=== PATIENT | male | born 2000 | race Caucasian/White ===

== ENCOUNTER 2023-01-03 14:21 | Outpatient (AMB) | payer OTHER, SELFPAY ==
--- NOTE | 2023-01-03 14:27 | MHC.PC.OV ---
Vital Signs 01/03/23 14:30 Height 5 ft 7 in Weight 134 lb 4 oz BMI 21.0 BP 118/72 Blood Pressure Location Rt brachial Position Sitting Pulse 79 Pulse Source Pulse Oximeter Pulse Oximetry (%) 96 Oxygen Delivery Method Room Air Intake Visit Reasons: [employer]-ADHD Allergies No Known Allergies Allergy (Verified 01/03/23 15:09) Medication List - Last Reconciled 01/03/23 by RU Andre No Known Home Meds Tobacco use date assessed: 01/03/23 Dental Screening Dental Screen Date: 01/03/23 Did you have a dental visit in the last 12 months?: Yes Did you have a dental problem in the last 6 months where you did not have access to dental care?: No Was dental information given to patient?: Patient has dentist HPI [employer]-AD[employer] HPI Details New pt is here for a PE. Will order labs. Pt has a hx of ADHD and used to take medication for this. He would like to restart meds and needs a psychiatrist, will have team contact pt. Pt has a family hx of hemochromatosis, will check iron, ferritin, genetic testing. [facility] Medical History Smell disorder Social History Housing: House Patient Tobacco Use Status: Never used Tobacco e-Cigarette/Vaping Use: Never Used Second Hand Smoke Exposure: No service: No Current occupational status: employed Current occupation: [employer] Current occupational exposures/hazards: No Cognitive needs: No Hearing needs: No Vision needs: No Questionnaire PHQ-9 Over the last 2 weeks, how often have you been bothered by any of the following problems? 1. Little interest or pleasure in doing things: not at all 2. Feeling down, depressed, or hopeless: not at all 3. Trouble falling or staying asleep, or sleeping too much: not at all 4. Feeling tired or having little energy: not at all 5. Poor appetite or overeating: not at all 6. Feeling bad about yourself - or that you are a failure or have let yourself or your family down: not at all 7. Trouble concentrating on things, such as reading the newspaper or watching television: several days 8. Moving or speaking so slowly that other people could have noticed. Or the opposite - being so fidgety or restless that you have been moving around a lot more than usual: not at all 9. Thoughts that you would be better off or of hurting yourself in some way: not at all Total score: 1 Depression Screening Interpretation: Negative 69676 - PHQ-9 Billing: Yes Source: Developed by Drs. Raymundo Gao, Jaquelin Kolb, Sunny Lofton and colleagues, with an educational philip from [employer]. Thrive Questionnaire Date Thrive assessed: 01/03/23 I am a: Patient What is your living situation today?: I have a steady place to live Within the past 12 months, did the food you bought not last and you didn't have the money to get more?: Never true Within the past 12 months, did you worry whether your food would run out before you got money to buy more?: Never true Do you have trouble paying for medicines?: No Do you have trouble getting transportation to medical appointments?: No Do you have trouble paying your heating and electricity bill?: No Do you have trouble taking care of your child, family member or friend?: No Do you have trouble with day-to-day activities such as bathing, preparing meals, shopping, managing finances, etc.?: No Are you currently unemployed and looking for a job?: No Are you interested in more education?: No Currently or been in a relationship where the following occur: no concerns reported AUDIT C Alcohol Use Questionnaire (AUDIT-C) 1. How often do you have a drink containing alcohol?: 2-3 times a week 2. How many drinks containing alcohol do you have on a typical day when you are drinking?: 3 or 4 3. How often do you have six or more drinks on one occasion?: Less than monthly Total Score: 5 Score Reviewed/Action Taken: Yes JORJE-7 AMB Questionnaire JORJE-7 Date JORJE - 7 assessed: 01/03/23 Feeling nervous, anxious, or on edge: 0 = Not at all Not being able to stop or control worryin = Not at all Worrying too much about different things: 0 = Not at all Trouble relaxin = Not at all Being so restless that it is hard to sit still: 0 = Not at all Becoming easily annoyed or irritable: 0 = Not at all Feeling afraid as if something awful might happen: 0 = Not at all Total JORJE-7 score (0-4 normal; 5-9 mild; 10-14 moderate; 15-21 severe): 0 Source: Developed by Drs. Raymundo Gao, Jaquelin Kolb, Sunny Lofton and colleagues, with an educational philip from [employer]. JORJE-7 Assessment Billing JORJE-7 Assessment Tool: JORJE-7 Assessment 70602 Review of Systems Const Denies chills and Denies fever(s) Eyes Denies blurry vision ENT Denies vertigo, Denies dizziness and Denies sore throat Card Denies chest pain at rest, Denies chest pain with activity, Denies diaphoresis, Denies dyspnea and Denies dyspnea on exertion Resp Denies cough, Denies dyspnea, Denies dyspnea on exertion and Denies wheezing GI Denies abdominal pain, Denies melena, Denies hematochezia, Denies constipation, Denies diarrhea and Denies loose stools Denies hematuria Musc Denies numbness and Denies tingling Skin/Breast Denies lesions Neuro Denies vertigo, Denies dizziness, Denies numbness and Denies tingling Psych Denies anxiety, Denies depression, Denies homicidal ideation, Denies suicidal ideation and Denies other (substance abuse) Aller/Immun Denies wheezing Physical exam (Primary Care) Vital Signs: Last Vital Signs Pulse 79 01/03/23 14:30 BP 118/72 01/03/23 14:30 Pulse Ox 96 01/03/23 14:30 Oxygen Delivery Method Room Air 01/03/23 14:30 BMI result Body Mass Index 21.0 Tobacco/Smoking Status: Tobacco use Status Tobacco use date assessed 01/03/23 01/03/23 14:35 Patient Tobacco Use Status Never used Tobacco 01/03/23 14:35 e-Cigarette/Vaping Use Never Used 01/03/23 14:35 PHQ-9: PHQ-9 Score PHQ-9: Total score 1 01/03/23 15:29 Depression Screening Interpretation: Negative Thrive Assessment: Date of Thrive Assessment Date Thrive assessed 01/03/23 01/03/23 15:29 Currently or been in a relationship where the following occur: no concerns reported Const General: cooperative Nutritional Appearance: well nourished Orientation/consciousness: patient oriented x3 HENMT Head: Yes normal to inspection, Yes normocephalic and Yes atraumatic Ears: TM's normal bilaterally Eyes General: appearance normal, both eyes and all related structures Alignment and Position: alignment normal and position normal Neck Neck: Yes normal visual inspection and Yes no lymphadenopathy Thyroid: Thyroid normal Resp Effort & Inspection: normal respiratory effort Auscultation: clear to auscultation bilaterally Cardio Rate: regular rate Rhythm: regular rhythm Heart sounds: S1 normal heart sound present, S2 normal heart sound present and no murmurs GI Palpation (GI): Soft to palpation and nontender Auscultation: normal bowel sounds Male General Exam: Yes normal external exam Penis: normal penis Scrotum: scrotum normal, testes descended bilaterally and no inguinal hernias Testes: no testicular mass Skin Rashes: no rashes Neuro General: patient oriented x3, moves all extremities, no focal motor deficits and deep tendon reflexes 2+ bilaterally Romberg Test: Negative Psych Appearance: grossly normal Mental Status: mental status grossly normal Speech and movement: Normal speech and movement present Affect: normal affect Attitude: cooperative Thought process: Normal thought process present Thought content: Normal thought content present Insight: Good insight present (Psych) Judgement: Good judgement present (Psych) Assessment and Plan Assessment & Plan (1) Physical exam: Code(s): Z00.00 - Encounter for general adult medical examination without abnormal findings Plan: Labs ordered (2) Family history of hemochromatosis: Code(s): Z83.49 - Family history of other endocrine, nutritional and metabolic diseases Plan The patient agreed to the use of a bilingual medical assistant for this encounter. Scribed for RU Marquez by Wendy Littlejohn bilingual medical assistant, on 01/03/2023 at 15:05 EST. Orders: Orders Comprehensive [place]. Panel Fast Today Z00.00 - Encounter for general adult medical examination without abnormal findings Lipid Panel Today Z00.00 - Encounter for general adult medical examination without abnormal findings TSH reflex Free T4 Today Z00.00 - Encounter for general adult medical examination without abnormal findings Complete Blood Count Auto Diff Today Z00.00 - Encounter for general adult medical examination without abnormal findings UA CC w/rflx Micro + Cult Today Z00.00 - Encounter for general adult medical examination without abnormal findings Ferritin Today Z83.49 - Family history of other endocrine, nutritional and metabolic diseases IRON PROFILE Today Z83.49 - Family history of other endocrine, nutritional and metabolic diseases DNA Analysis Hemochromatosis Today Z83.49 - Family history of other endocrine, nutritional and metabolic diseases Coding Level of Care Code New Pt Prev Care 18-39yr(52919 Diagnoses Physical exam Z00.00 Family history of hemochromatosis Z83.49 Additional Codes JORJE-7 Assessment Billing - JORJE-7 Assessment Tool: JORJE-7 Assessment 58116 ([id number])
[2023-01-03 14:30] VITALS: BP 118/72; PULSE 79; O2SAT 96; BMI 21.0
== END 2023-01-03 16:54 | disposition home or self-care (01) ==
PROVIDERS: PCP Nurse Practitioner Family; Visit Provider Nurse Practitioner Family
DX: Z00.00 Encounter for general adult medical examination without abnormal findings (principal); Z83.49 Family history of other endocrine, nutritional and metabolic diseases
CPT/HCPCS: 99385

== ENCOUNTER 2024-01-09 15:51 | Outpatient (AMB) | payer OTHER, SELFPAY ==
--- NOTE | 2024-01-09 15:54 | A.OFFPC_ITS ---
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 Will order labs. [facility] Medical History Smell disorder Surgical History No pertinent past surgical history Social History Housing: House Patient Tobacco Use Status: Never used Tobacco e-Cigarette/Vaping Use: Never Used Second Hand Smoke Exposure: No service: No Current occupational status: employed Current occupation: [employer] Current occupational exposures/hazards: No Cognitive needs: No Hearing needs: No Vision needs: No Questionnaire PHQ-9 Over the last 2 weeks, how often have you been bothered by any of the following problems? 1. Little interest or pleasure in doing things: not at all 2. Feeling down, depressed, or hopeless: not at all 3. Trouble falling or staying asleep, or sleeping too much: not at all 4. Feeling tired or having little energy: not at all 5. Poor appetite or overeating: not at all 6. Feeling bad about yourself - or that you are a failure or have let yourself or your family down: not at all 7. Trouble concentrating on things, such as reading the newspaper or watching television: not at all 8. Moving or speaking so slowly that other people could have noticed. Or the opposite - being so fidgety or restless that you have been moving around a lot more than usual: not at all 9. Thoughts that you would be better off or of hurting yourself in some way: not at all Total score: 0 Depression Screening Interpretation: Negative Depression Screening Done: Yes 50344 - PHQ-9 Billing: Yes Source: Developed by Drs. Raymundo Gao, Jaquelin Kolb, Sunny Lofton and colleagues, with an educational philip from [employer]. Thrive Questionnaire Date Thrive assessed: 01/09/24 I am a: Patient What is your living situation today?: I have a steady place to live Within the past 12 months, did the food you bought not last and you didn't have the money to get more?: Never true Within the past 12 months, did you worry whether your food would run out before you got money to buy more?: Never true Do you have trouble paying for medicines?: No Do you have trouble getting transportation to medical appointments?: No Do you have trouble paying your heating and electricity bill?: No Do you have trouble taking care of your child, family member or friend?: No Do you have trouble with day-to-day activities such as bathing, preparing meals, shopping, managing finances, etc.?: No Are you currently unemployed and looking for a job?: No Are you interested in more education?: No Please select the resources that you would like help with: None Currently or been in a relationship where the following occur: No concerns reported THRIVE Score: 0 AUDIT C Alcohol Use Questionnaire (AUDIT-C) 1. How often do you have a drink containing alcohol?: 2-3 times a week 2. How many drinks containing alcohol do you have on a typical day when you are drinking?: 3 or 4 3. How often do you have six or more drinks on one occasion?: Never Total Score: 4 Score Reviewed/Action Taken: Yes JORJE-7 AMB Questionnaire JORJE-7 Date JORJE - 7 assessed: 01/09/24 Feeling nervous, anxious, or on edge: 0 = Not at all Not being able to stop or control worryin = Not at all Worrying too much about different things: 0 = Not at all Trouble relaxin = Not at all Being so restless that it is hard to sit still: 0 = Not at all Becoming easily annoyed or irritable: 0 = Not at all Feeling afraid as if something awful might happen: 0 = Not at all Total JORJE-7 score (0-4 normal; 5-9 mild; 10-14 moderate; 15-21 severe): 0 Source: Developed by Drs. Raymundo Gao, Jaquelin Kolb, Sunny Lofton and colleagues, with an educational philip from [employer]. JORJE-7 Assessment Billing JORJE-7 Assessment Tool: JORJE-7 Assessment 58468 Review of Systems Const Denies chills and Denies fever(s) Eyes Denies blurry vision ENT Denies vertigo, Denies dizziness and Denies sore throat Card Denies chest pain at rest, Denies chest pain with activity, Denies diaphoresis, Denies dyspnea and Denies dyspnea on exertion Resp Denies cough, Denies dyspnea, Denies dyspnea on exertion and Denies wheezing GI Denies abdominal pain, Denies melena, Denies hematochezia, Denies constipation, Denies diarrhea and Denies loose stools Denies hematuria Musc Denies numbness and Denies tingling Skin/Breast Denies lesions Neuro Denies vertigo, Denies dizziness, Denies numbness and Denies tingling Psych Denies anxiety, Denies depression, Denies homicidal ideation, Denies suicidal ideation and Denies other (substance abuse) Aller/Immun Denies wheezing Physical exam (Primary Care) Vital Signs: Last Vital Signs Pulse 76 01/09/24 15:55 BP 112/70 01/09/24 15:55 Pulse Ox 98 01/09/24 15:55 Oxygen Delivery Method Room Air 01/09/24 15:55 BMI result Body Mass Index 22.4 Tobacco/Smoking Status: Tobacco use Status Tobacco use date assessed 01/09/24 01/09/24 15:56 Patient Tobacco Use Status Never used Tobacco 01/09/24 15:56 e-Cigarette/Vaping Use Never Used 01/09/24 15:56 PHQ-9: PHQ-9 Score PHQ-9: Total score 0 01/09/24 16:14 Depression Screening Interpretation: Negative Thrive Assessment: Date of Thrive Assessment Date Thrive assessed 01/09/24 01/09/24 15:56 Currently or been in a relationship where the following occur: No concerns reported Const General: cooperative Nutritional Appearance: well nourished Orientation/consciousness: patient oriented x3 HENMT Head: Yes normal to inspection, Yes normocephalic and Yes atraumatic Ears: TM's normal bilaterally Eyes General: appearance normal, both eyes and all related structures Alignment and Position: alignment normal and position normal Neck Neck: Yes normal visual inspection and Yes no lymphadenopathy Thyroid: Thyroid normal Resp Effort & Inspection: normal respiratory effort Auscultation: clear to auscultation bilaterally Cardio Rate: regular rate Rhythm: regular rhythm Heart sounds: S1 normal heart sound present, S2 normal heart sound present and no murmurs GI Palpation (GI): Soft to palpation and nontender Auscultation: normal bowel sounds Male General Exam: Yes normal external exam Penis: normal penis Scrotum: scrotum normal, testes descended bilaterally and no inguinal hernias Testes: no testicular mass Skin Rashes: no rashes Neuro General: patient oriented x3, moves all extremities, no focal motor deficits and deep tendon reflexes 2+ bilaterally Romberg Test: Negative Psych Appearance: grossly normal Mental Status: mental status grossly normal Speech and movement: Normal speech and movement present Affect: normal affect Attitude: cooperative Thought process: Normal thought process present Thought content: Normal thought content present Insight: Good insight present (Psych) Judgement: Good judgement present (Psych) Assessment and Plan Assessment & Plan (1) Physical exam: Code(s): Z00.00 - Encounter for general adult medical examination without abnormal findings Orders: Orders Comprehensive [place]. Panel Fast Today Z00.00 - Encounter for general adult medical examination without abnormal findings Lipid Panel Today Z00.00 - Encounter for general adult medical examination without abnormal findings Complete Blood Count Auto Diff Today Z00.00 - Encounter for general adult medical examination without abnormal findings TSH reflex Free T4 Today Z00.00 - Encounter for general adult medical examination without abnormal findings UA CC w/rflx Micro + Cult Today Z00.00 - Encounter for general adult medical examination without abnormal findings Coding Level of Care Code Est Pt Prev Care 18-39y(13249) Diagnoses Physical exam Z00. Additional Codes JORJE-7 Assessment Billing - JORJE-7 Assessment Tool: JORJE-7 Assessment 11395 ([id number])
[2024-01-09 15:55] VITALS: BP 112/70; PULSE 76; O2SAT 98; BMI 22.4
== END 2024-01-09 16:24 | disposition home or self-care (01) ==
PROVIDERS: PCP Nurse Practitioner Family; Visit Provider Nurse Practitioner Family
DX: Z00.00 Encounter for general adult medical examination without abnormal findings (principal)
CPT/HCPCS: 99395

== ENCOUNTER 2025-01-12 16:03 | Outpatient (AMB) | payer OTHER, SELFPAY ==
--- NOTE | 2025-01-12 16:05 | A.OFFPC_ITS ---
Vital Signs 01/12/25 16:07 Height 5 ft 7 in Weight 134 lb BMI 21.0 BP 108/82 Blood Pressure Location Rt brachial Position Sitting Respiration 16 Pulse 80 Pulse Source Pulse Oximeter Temp 98.4 F Temp Source Oral Pulse Oximetry (%) 98 Oxygen Delivery Method Room Air Intake Visit Reasons: ANNUAL Wash And Greaser Required: No Accompanied by: Self / Same As Patient Allergies No Known Allergies Allergy (Verified 01/12/25 16:08) Tobacco use date assessed: 01/12/25 Dental Screening Dental Screen Date: 01/12/25 Did you have a dental visit in the last 12 months?: No Did you have a dental problem in the last 6 months where you did not have access to dental care?: No Was dental information given to patient?: Patient has dentist HPI ANNUAL HPI Details History of Present Illness The patient is a 25-year-old male presenting for a physical examination. He denies experiencing any chest pain, shortness of breath, abdominal pain, blood in stool, constipation, diarrhea, numbness, tingling, suicidal ideation, or homicidal ideation. The patient reports doing quite well overall. Health Maintenance Social History Review of Systems - Cardiovascular: Denies chest pain - Respiratory: Denies shortness of breat h - Gastrointestinal: Denies abdominal daren n, blood in stool, constipation, diarrhea - Neurological: Denies numbness, tinglin g - Psychiatric: Denies suicidal ideation, homicidal ideation Physical Exam General: Cooperative, healthy appearing, comfortable, no acute distress and well developed Orientation: Patient oriented x3 Limitations: No limitations Head: Normal to inspection Ears: Hearing grossly normal bilaterally Nose: Normal external nose present Face and sinus: Normal facial exam Eyes: Appearance normal, both eyes and all related structures Neck: Normal visual inspection and Yes full ROM Respiratory: Normal respiratory effort and able to speak in complete sentences. Clear to auscultation bilaterally Cardiovascular: Regular rate and rhythm. Normal S1 and S2 GI: Normal to inspection. Soft to palpation and nontender : Testicles without masses/lesions and no hernias appreciated Skin: No rashes or lesions noted Neuro: Patient oriented x3 Extremities: Normal to inspection plan: labs..fasting discussion I discussed with the patient the importance of regular physical examinations and the plan to obtain fasting labs in the near future. Patient Instructions - Schedule fasting labs as discussed. [facility] Medical History Smell disorder Surgical History No pertinent past surgical history Social History Housing: House Patient Tobacco Use Status: Never used Tobacco e-Cigarette/Vaping Use: Never Used Second Hand Smoke Exposure: No service: No Current occupational status: employed Current occupation: [employer] Current occupational exposures/hazards: No Cognitive needs: No Hearing needs: No Vision needs: No Questionnaire PHQ-9 Over the last 2 weeks, how often have you been bothered by any of the following problems? 1. Little interest or pleasure in doing things: not at all 2. Feeling down, depressed, or hopeless: not at all 3. Trouble falling or staying asleep, or sleeping too much: not at all 4. Feeling tired or having little energy: not at all 5. Poor appetite or overeating: not at all 6. Feeling bad about yourself - or that you are a failure or have let yourself or your family down: not at all 7. Trouble concentrating on things, such as reading the newspaper or watching television: not at all 8. Moving or speaking so slowly that other people could have noticed. Or the opposite - being so fidgety or restless that you have been moving around a lot more than usual: not at all 9. Thoughts that you would be better off or of hurting yourself in some way: not at all Total score: 0 Depression Screening Interpretation: Negative Depression Screening Done: Yes 95593 - PHQ-9 Billing: Yes Source: Developed by Drs. Raymundo Gao, Jaquelin Kolb, Sunny Lofton and colleagues, with an educational philip from [employer]. Thrive Questionnaire Date Thrive assessed: 01/09/24 I am a: Patient What is your living situation today?: I have a steady place to live Within the past 12 months, did the food you bought not last and you didn't have the money to get more?: Never true Within the past 12 months, did you worry whether your food would run out before you got money to buy more?: Never true Do you have trouble paying for medicines?: No Do you have trouble getting transportation to medical appointments?: No Do you have trouble paying your heating and electricity bill?: No Do you have trouble taking care of your child, family member or friend?: No Do you have trouble with day-to-day activities such as bathing, preparing meals, shopping, managing finances, etc.?: No Are you currently unemployed and looking for a job?: I choose not to answer this question Are you interested in more education?: No Please select the resources that you would like help with: None Currently or been in a relationship where the following occur: No concerns reported THRIVE Score: 0 AUDIT C Alcohol Use Questionnaire (AUDIT-C) 1. How often do you have a drink containing alcohol?: 2-3 times a week 2. How many drinks containing alcohol do you have on a typical day when you are drinking?: 1 or 2 3. How often do you have six or more drinks on one occasion?: Less than monthly Total Score: 4 Score Reviewed/Action Taken: Yes JORJE-7 AMB Questionnaire JORJE-7 Date JORJE - 7 assessed: 01/12/25 Feeling nervous, anxious, or on edge: 0 = Not at all Not being able to stop or control worryin = Not at all Worrying too much about different things: 0 = Not at all Trouble relaxin = Not at all Being so restless that it is hard to sit still: 0 = Not at all Becoming easily annoyed or irritable: 0 = Not at all Feeling afraid as if something awful might happen: 0 = Not at all Total JORJE-7 score (0-4 normal; 5-9 mild; 10-14 moderate; 15-21 severe): 0 Source: Developed by Drs. Raymundo Gao, Jaquelin Kolb, Sunny Lofton and colleagues, with an educational philip from [employer]. JORJE-7 Assessment Billing JORJE-7 Assessment Tool: JORJE-7 Assessment 66615 Physical exam (Primary Care) Vital Signs: Last Vital Signs Temp 98.4 F 01/12/25 16:07 Pulse 80 01/12/25 16:07 Resp 16 01/12/25 16:07 BP 108/82 01/12/25 16:07 Pulse Ox 98 01/12/25 16:07 Oxygen Delivery Method Room Air 01/12/25 16:07 BMI result Body Mass Index 21.0 Tobacco/Smoking Status: Tobacco use Status Tobacco use date assessed 01/12/25 01/12/25 16:14 Patient Tobacco Use Status Never used Tobacco 01/12/25 16:06 e-Cigarette/Vaping Use Never Used 01/12/25 16:06 PHQ-9: PHQ-9 Score PHQ-9: Total score 0 01/12/25 16:07 Depression Screening Interpretation: Negative Thrive Assessment: Date of Thrive Assessment Date Thrive assessed 01/09/24 01/12/25 16:06 Currently or been in a relationship where the following occur: No concerns reported Coding Level of Care Code Est Pt Prev Care 18-39y(69135) Diagnoses Physical exam Z00.00 Family history of hemochromatosis Z83.49 Additional Codes JORJE-7 Assessment Billing - JORJE-7 Assessment Tool: JORJE-7 Assessment 97611 ([id number]) PHQ-9 - 93403 - PHQ-9 Billing: Yes ([id number]) Assessment & Plan Assessment & Plan (1) Physical exam: Code(s): Z00.00 - Encounter for general adult medical examination without abnormal findings Category: Medical (2) Family history of hemochromatosis: Code(s): Z83.49 - Family history of other endocrine, nutritional and metabolic diseases Category: Medical Plan . Orders: Orders Comprehensive [place]. Panel Fast Today Z00.00 - Encounter for general adult medical examination without abnormal findings TSH reflex Free T4 Today Z00.00 - Encounter for general adult medical examination without abnormal findings UA CC w/rflx Micro + Cult Today Z00.00 - Encounter for general adult medical examination without abnormal findings Complete Blood Count Auto Diff Today Z00.00 - Encounter for general adult medical examination without abnormal findings Lipid Panel Today Z00.00 - Encounter for general adult medical examination without abnormal findings IRON PROFILE Today Z83.49 - Family history of other endocrine, nutritional and metabolic diseases Ferritin Today Z83.49 - Family history of other endocrine, nutritional and metabolic diseases DNA Analysis Hemochromatosis Today Z83.49 - Family history of other endocrine, nutritional and metabolic diseases
[2025-01-12 16:07] VITALS: BP 108/82; PULSE 80; RESP 16; TEMP 36.9; O2SAT 98; BMI 21.0
--- OUTSIDE RECORDS SUMMARY | 2025-01-12 18:00 | XMS_ITS | Encounter Summary ---
Author Organization [facility] Address [address] [place] [address] Phone Care Team Providers Care Mold Car Pusher Name Role Phone Unavailable Primary Care Provider Unavailabl e Encounter Details Date Type Department Care Team (Late st Contact Info) Description 09/21/2009 Documentation [facility] [address] [place] [address] Family Medicine, Physician [address] [place] [address] Social History Tobacco Use Types Packs/Day Years Used Date Smoking Tobacco: Never Assessed Sex and Gender Information Value Date Recorded Sex Assigned at Not on file Legal Sex Male 5:02 PM EDT Gender Identity Not on file Sexual Orientation Not on file documented as of this encounter Plan of Treatment Not on file documented as of this encounter Visit Diagnoses Not on filedocumented in this encounter
--- OUTSIDE RECORDS SUMMARY | 2025-01-12 18:00 | XMS_ITS | Encounter Summary ---
Author Organization [facility] Address [address] [place] [address] Phone Care Team Providers Care Director Employment Name Role Phone Unavailable Primary Care Provider Unavailabl e Encounter Details Date Type Department Care Team (Late st Contact Info) Description 09/21/2009 Documentation [facility] Family [facility] [address] [place] [address] Family Medicine, Physician [address] [place] [address] Social History Tobacco Use Types Packs/Day Years [...]
--- OUTSIDE RECORDS SUMMARY | 2025-01-12 18:00 | XMS_ITS | Encounter Summary ---
Author Organization [facility] Address [address] [place] [address] Phone Care Team Providers Care Food Selector Name Role Phone Unavailable Primary Care Provider Unavailabl e Encounter Details Date Type Department Care Team (Late st Contact Info) Description 10/01/2009 Documentation [facility] [place] Family Medicine [address] [place] [address] Family Medicine, Physician [address] [place] [address] Social History Tobacco Use Types Packs/Day Years [...]
--- OUTSIDE RECORDS SUMMARY | 2025-01-12 18:00 | XMS_ITS | Encounter Summary ---
Author Organization [facility] Address [address] [place] [address] Phone Care Team Providers Care Manager Lvn Name Role Phone Unavailable Primary Care Provider Unavailabl e Encounter Details Date Type Department Care Team (Late st Contact Info) Description 10/19/2009 Documentation [facility] Family [facility] [address] [place] [address] Family Medicine, Physician [address] [place] [address] Social History Tobacco Use Types Packs/Day Years [...]
--- OUTSIDE RECORDS SUMMARY | 2025-01-12 18:00 | XMS_ITS | Encounter Summary ---
Author Organization [facility] Address [address] [place] [address] Phone Care Team Providers Care Coater Brake Linings Name Role Phone Unavailable Primary Care Provider Unavailabl e Encounter Details Date Type Department Care Team (Late st Contact Info) Description 02/27/2013 Documentation [facility] [place] Family Medicine [address] [place] [address] Family Medicine, Physician [address] [place] [address] Social History Tobacco Use Types Packs/Day Years [...]
--- OUTSIDE RECORDS SUMMARY | 2025-01-12 18:01 | XMS_ITS | Encounter Summary ---
Author Organization [facility] Address [address] [place] [address] Phone Care Team Providers Care Elderly Companion Name Role Phone Unavailable Primary Care Provider Unavailabl e Encounter Details Date Type Department Care Team (Late st Contact Info) Description 08/12/2013 Documentation [facility] [place] [address] [place] [address] Family Medicine, Physician [address] [place] [address] Social History Tobacco Use Types Packs/Day Years [...]
--- OUTSIDE RECORDS SUMMARY | 2025-01-12 18:01 | XMS_ITS | Encounter Summary ---
Author Organization [facility] Address [address] [place] [address] Phone Care Team Providers Care Cash Applications Manager Name Role Phone Unavailable Primary Care Provider Unavailabl e Encounter Details Date Type Department Care Team (Late st Contact Info) Description 08/12/2012 Documentation [facility] [place] [address] [place] [address] Family Medicine, Physician [address] [place] [address] Social History Tobacco Use Types Packs/Day Years [...]
--- OUTSIDE RECORDS SUMMARY | 2025-01-12 18:01 | XMS_ITS | Clinical Summary ---
Author Organization [facility] Address [address] [place] [address] Phone Care Team Providers Care Commercial Makeup Artist Name Role Phone Unavailable Primary Care Provider Unavailabl e Allergies No known active allergies Medications dexmethylphenidate XR (FOCALIN XR) 15 MG 24 hr capsuleIndications :Attention deficit hyperactivity disorder (ADHD), unspecified ADHD type Take 1 capsule (15 mg total) by mouth daily. 30 capsule 9 Active Active Problems Problem Noted Date Diagnosed Date Attention deficit hyperactiv ity disorder (ADHD), combined type 07/01/2009 Immunizations Immunization Administration Dates Next Due DTaP 5 02/19/2002, 0,1998,05/19,1998 H1N1 03/15/2009 HPV Vaccine 9 Valent 01/15/2015 HPV, Quadrivalent 01/16/2014,11/11/2013 Hep A, ped/adol 01/15/2015,11/11/2013 Hep B, ped/adol 1998,1998,1998 Hib (PRP-T) 05/11/1999, 9,1998,03/16 IPV 02/19/2002 Influenza Split 04/21/2013, 2,02/22/2011,04/01 Influenza, injectable, MDCK, preservative free, quadrivalent 04/18/2016 Influenza, injectable, quadrivalent 02/14/2016,1 06/15/2013 Influenza, injectable, quadr ivalent, preservative free 04/09/2017,01/15/2015 Influenza, injectable, trivalent 02/15/2009 MMR 02/19/2002,01/17/1999 Meningococcal Conj (Menactra) MCV4P 02/14/2016,0 02/15/2009 OPV 01/17/1999,1998,1998 Pneumococcal Conjugate 02/22/2000,12/19/1999 Tdap 02/15/2009 Varicella 02/04/2008,01/17/1999 Family History Medical History Relation Name Comments Migraines Father Heart attack Maternal Grandmother Relation Name Status Comments Father Alive Father: Migrain es Maternal Grandfather Maternal Grandmother Mother Alive Mother: Alive a nd well Paternal Grandfather Paternal Grandmother Sister 1 Alive Sister: Alive a nd well, Alive and well Sister 2 Alive Sister: Alive a nd well, Alive and well Social History Tobacco Use Types Packs/Day Years Used Date Smoking Tobacco: Never Smokeless Tobacco: Never Comments:Never smoker Alcohol Use Standard Drinks/Week Comments No 0 (1 standard drink = 0.6 oz pur e alcohol) Sex and Gender Information Value Date Recorded Sex Assigned at Not on file Legal Sex Male 5:02 PM EDT Gender Identity Not on file Sexual Orientation Not on file Last Filed Vital Signs Vital Sign Reading Time Taken Comments Blood Pressure 109/60 05/25/2017 2:53 PM EST Pulse 83 05/25/2017 2:53 PM EST Temperature 36.6 C (97.8 F) 05/25/2017 2:53 PM EST Respiratory Rate - - Oxygen Saturation - - Inhaled Oxygen Concentration - - Weight 52.2 kg (115 lb) 05/25/2017 2:53 PM EST Height 172.7 cm (5' 8 ) 05/25/2017 2:53 PM EST Body Mass Index 17.49 05/25/2017 2:53 PM EST Plan of Treatment Health Maintenance Due Date Last Done Comments DTaP,Tdap,and Td Vaccines (7 - Td or Tdap) 02/15/2019 02/15/2009, 02/19/2002, 07/20/1999, Additional history exists COVID-19 Vaccine ( season) 2024 Influenza Vaccines (#1) 2024 04/09/20 17, 04/18/2016, 02/14/2016, Additional history exists Hepatitis B Vaccines Completed 1998, 1998, 1998 HIB Vaccines Completed 05/11/1999, 05/1998, 1998, Additional history exists Pneumococcal Vaccine Completed 02/22/2000, 12/19/19 00 IPV Vaccines Completed 02/19/2002, 12/21, 1998, Additional history exists MMR Vaccines Completed 02/19/2002, 01/17/1999 Varicella Vaccines Completed 02/04/2008, 01/17/1999 HPV Vaccines Completed 01/15/2015, 12/20, 11/11/2013 Hepatitis A Vaccines Completed 01/15/2015, 11/12/19 14 Meningococcal Vaccine Completed 02/14/2016, 009 Men B Vaccine Aged Out No longer elig ible based on patient's age to complete this topic Insurance [employer] NYDIA [id number] [id number]
--- OUTSIDE RECORDS SUMMARY | 2025-01-12 18:01 | XMS_ITS | Encounter Summary ---
Author Organization [facility] Address [address] [place] [address] Phone Care Team Providers Care Type Casting Machine Operator Name Role Phone Unavailable Primary Care Provider Unavailabl e Encounter Details Date Type Department Care Team (Late st Contact Info) Description 07/19/2009 Documentation [facility] Family Medicine [address] [place] [address] Family Medicine, Physician [address] [place] [address] Social History Tobacco Use Types Packs/Day Years [...]
--- OUTSIDE RECORDS SUMMARY | 2025-01-12 18:01 | XMS_ITS | Encounter Summary ---
Author Organization [facility] Address [address] [place] [address] Phone Care Team Providers Care Brush Clearing Laborer Name Role Phone Unavailable Primary Care Provider Unavailabl e Encounter Details Date Type Department Care Team (Late st Contact Info) Description 01/04/2017 Conversion Encounter [facility] [place] [address] [place] [address] Social History Tobacco Use Types Packs/Day Years Used Date Smoking Tobacco: Never Comments:Never smoker Sex and Gender Information Value Date Recorded Sex Assigned at Not on file Legal Sex Male 5:02 PM EDT Gender Identity Not on file Sexual Orientation Not on file documented as of this encounter Plan of Treatment Not on file documented as of this encounter Visit Diagnoses Not on filedocumented in this encounter
--- OUTSIDE RECORDS SUMMARY | 2025-01-12 18:01 | XMS_ITS | Encounter Summary ---
Author Organization [facility] Address [address] [place] [address] Phone Care Team Providers Care Electric Motor Tester Name Role Phone Unavailable Primary Care Provider Unavailabl e Encounter Details Date Type Department Care Team (Late st Contact Info) Description 09/21/2009 Documentation [facility] Family Medicine [address] [place] [address] Family Medicine, Physician [address] [place] [address] Social History Tobacco Use Types Packs/Day Years [...]
== END 2025-01-12 16:39 | disposition home or self-care (01) ==
PROVIDERS: PCP Nurse Practitioner Family; Visit Provider Nurse Practitioner Family
DX: Z00.00 Encounter for general adult medical examination without abnormal findings (principal); Z83.49 Family history of other endocrine, nutritional and metabolic diseases

== ENCOUNTER → 2025-01-12 16:03 | Outpatient (BNVA) | payer OTHER, SELFPAY | PROVIDERS: PCP Nurse Practitioner Family; Visit Provider Nurse Practitioner Family | DX: Z00.00 Encounter for general adult medical examination without abnormal findings (principal); Z83.49 Family history of other endocrine, nutritional and metabolic diseases | CPT/HCPCS: 96127; 99395 ==